=== PATIENT | male | born 1960 | race Caucasian/White ===

== ENCOUNTER → 2020-08-05 | Outpatient (CLI) | payer OTHER | LOC: CT 09:33 | DX: R10.13 Epigastric pain (principal) | CPT/HCPCS: 36415; 74160; 82565; 84520; Q9967 ==

== ENCOUNTER → 2021-08-18 | Outpatient (CLI) | payer OTHER | LOC: KOH-I 12:51 | DX: M25.562 Pain in left knee (principal); M25.552 Pain in left hip; M46.1 Sacroiliitis, not elsewhere classified; M17.12 Unilateral primary osteoarthritis, left knee | CPT/HCPCS: 73502; 73562 ==

== ENCOUNTER → 2021-10-09 | Outpatient (CLI) | payer OTHER | LOC: KOH-I 09-27 08:15 | DX: M51.16 Intervertebral disc disorders with radiculopathy, lumbar region (principal); M48.07 Spinal stenosis, lumbosacral region | CPT/HCPCS: 72148 ==

== ENCOUNTER → 2022-02-05 | Outpatient (CLI) | payer OTHER | LOC: EXRD 10:53 | DX: I73.9 Peripheral vascular disease, unspecified (principal); M79.606 Pain in leg, unspecified | CPT/HCPCS: 93925 ==

== ENCOUNTER → 2022-03-05 | Outpatient (CLI) | payer OTHER | LOC: KOH-I 14:55 | DX: R06.02 Shortness of breath (principal); Z72.0 Tobacco use | CPT/HCPCS: 71046 ==